=== PATIENT | male | born 1960 | race Asian ===

== ENCOUNTER 2021-10-31 19:22 | Emergency (ER) | payer OTHER ==
[~2021-10-31] VITALS: Ht 160 cm; Wt 63.5 kg
[2021-10-31] MEDS ORDERED: LIDOCAINE HCL/MPF 1% 30 ML VIAL IJ ONE (21:53)
[2021-10-31] MEDS ORDERED: CEPH500C2 PO (22:09)
[2021-10-31] MEDS ORDERED: IBUP-1955 PO (22:09)
[2021-10-31] MEDS ORDERED: SULF1TAB48 PO (22:09)
[2021-10-31 22:25] VITALS: BP 158/88
== END 2021-10-31 22:26 | disposition home or self-care (01) ==
LOC: ER 19:28
DX: L02.415 Cutaneous abscess of right lower limb (principal); L03.115 Cellulitis of right lower limb; I10 Essential (primary) hypertension
CPT/HCPCS: 10060; 76882; 99284; A6403; A6407; J3490

== ENCOUNTER 2021-11-03 12:12 | Emergency (ER) | payer OTHER ==
[~2021-11-03] VITALS: Ht 177.8 cm; Wt 63.5 kg
[~2021-11-03 12:12] MED LIST: CEPH500C2 PO; IBUP-1955 PO; SULF1TAB48 PO
[2021-11-03 12:19] VITALS: BP 140/88
== END 2021-11-03 14:00 | disposition home or self-care (01) ==
LOC: ER 12:13
DX: L02.415 Cutaneous abscess of right lower limb (principal); I10 Essential (primary) hypertension

== ENCOUNTER 2021-11-08 14:09 | Emergency (ER) | payer OTHER ==
[~2021-11-08] VITALS: Ht 177.8 cm; Wt 63.5 kg
[2021-11-08 14:29] VITALS: BP 140/89
== END 2021-11-08 15:30 | disposition home or self-care (01) ==
LOC: ER 14:13
DX: L03.115 Cellulitis of right lower limb (principal); L02.415 Cutaneous abscess of right lower limb; I10 Essential (primary) hypertension; Z79.1 Long term (current) use of non-steroidal anti-inflammatories (NSAID); Z79.2 Long term (current) use of antibiotics

== ENCOUNTER → 2023-07-06 | Emergency (ER) | payer MEDICAID, OTHER ==
[~2023-07-06] VITALS: Ht 172.7 cm; Wt 62.6 kg
[~2023-07-06] MED LIST changes: +CEPHALEXIN MONOHYDRATE 500 MG CAPSULE PO ONE; +SULFAMETH/TRIMETH 800/160 MG 1 UDTAB TABLET ONE; +SULFAMETH/TRIMETH 800/160 MG 1 UDTAB TABLET PO ONE
[2023-07-06 14:52] VITALS: BP 154/92; TEMP 98.3; O2SAT 98
== END | disposition home or self-care (01) ==
LOC: ER 13:51
DX: N49.2 Inflammatory disorders of scrotum (principal); I10 Essential (primary) hypertension; Z79.899 Other long term (current) drug therapy